=== PATIENT | female | born 2000 | race Caucasian/White ===

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

== ENCOUNTER 2019-01-29 12:27 | Emergency (ER) | payer OTHER ==
--- OUTSIDE RECORDS SUMMARY | 2019-01-29 13:52 | XMS REPORT | Continuity of Care Document ---
:2000 External Reference #:[id number] Author Name Caryn Luna M.D. Address [address] [place] [address] Care Team Providers Name Role Phone Caryn Luna M.D. Care Team Information Professor Of Violin Unavailable Payers Date Identification Numbers Payment Provider Subscriber Policy Number: [id number] [employer] Billy Lewis PayID: [id number] [address] [place] [address] Advance Directives Description No Information Available Problems Date Description Provider Status Onset: 09/01/2014 Attention deficit hyperactivity Zoya Hammond RPAC Active disorder Onset: 01/08/2018 Keratitis Zoya Hammond RPAC Active Note: due to contact lenses 12/2017 Family History Date Family Member(s) Observation Comments Father Unknown Mother Fibromyalgia Mother Anxiety Mother Bipolar Disorder Maternal Grandmother Glaucoma Social History Type Date Description Comments Sex Unknown Lives With Mother Lives With Brother X2 Lives With Alone Occupation Student Occupation Currently Working ETOH Use Never used alcohol Tobacco Use Start: Unknown Patient has never smoked Recreational Drug Use Denies Drug Use Smoking Status Reviewed: 12/30/18 Patient has never smoked Allergies, Adverse Reactions, Alerts Date Description Reaction Status Severity Comments 09/01/2014 Aspirin Anaphylaxis Active 05/27/2013 Cephalexin Urticaria Active 03/30/2013 Sulfa Antibiotics Urticaria Active Medications Medication Date Status Form Strength Qnty SIG Indications Ordering Provider No Active 06/11 Active Unknown Medications /2017 Xulane 03/09 Hx Patches 150-35mcg 3unit apply one Clune, Weekly /24HR s patch Jenniferl - topically eigh, DIVING FISHER 06/11 once a week for 21 days(3 weeks) then one week patch free Meloxicam 02/09 Hx Tablets 7.5mg 30tab 1 tab by Manuel, s mouth Tessa - every day , M.D. 06/11 as needed with milk for [facility] Ev[facility] 08/26 Hx Patches 150-35mcg 3unit apply one Clune Weekly /24HR s patch to Jenniferl - dry eigh, DIVING FISHER 03/09 hairless skin of the upper arms, abdomen or lower back x 3 weeks leave off 1 week - repeat Methylphenidate 01/18 Hx Tablets 10mg 90tab 1 tablet Manuel s by mouth Tessa - MD damon 08/10 times day ...... Reference #: [id number] ..... please give #30 for school and #60 for home. Amoxicillin 00 Hx Suspension 400mg/5ML Take 10MLS Unknown /0000 Rec By Mouth 2 - Times 08/10 Until Finished Immunizations CPT Code Status Date Vaccine Lot # [id number] Given 08/10/2015 Meningococcal Conjugate Vaccine Serogroups For [id number] Intramuscular Use 33075 Given 08/10/2015 Influenza Virus Vaccine Intranasal [id number] 41727 Given 05/05/2014 Poliovirus Vaccine Subcutaneous Or Intramuscular 19717 Given 03/30/2013 Meningococcal Conjugate Vaccine Serogroups For Intramuscular Use 27468 Given 02/06/2011 Gardasil 43491 Given 10/09/2010 Varicella (Chicken Pox) Vaccine 43522 Given 10/09/2010 Gardasil 19453 Given 08/09/2010 Tdap injection 72655 Given 08/09/2010 Gardasil 08418 Given 01/21/2004 DTaP Vaccine Younger Than 7 74303 Given 03/01/2003 MMR Vaccine, Live, For Subcutaneous Use 33821 Given 03/01/2003 Pneumococcal Conjugate Vaccine 7 Valent For Intramuscular Use 38252 Given 02/27/2002 Poliovirus Vaccine Subcutaneous Or Intramuscular 91178 Given 12/27/2000 Hib PRP-T Conjugate 4 Dose Schedule 47038 Given 12/27/2000 DTaP Vaccine Younger Than 7 16650 Given 12/27/2000 MMR Vaccine, Live, For Subcutaneous Use 96586 Given 12/27/2000 Poliovirus Vaccine Subcutaneous Or Intramuscular 13113 Given 12/27/2000 Varicella (Chicken Pox) Vaccine 96902 Given 2000 Hepatitis B Vaccine Pediatric/Adolescent 32751 Given 1999 Hemophilus Influenza B 32582 Given 1999 DTP Vaccine 15915 Given 1999 Hemophilus Influenza B 31879 Given 1999 Poliovirus Vaccine Subcutaneous Or Intramuscular 79129 Given 1999 DTP Vaccine 84081 Given 1999 Hepatitis B Vaccine Pediatric/Adolescent 00183 Given 1999 DTaP & Hib Vaccine 91243 Given 1999 Poliovirus Vaccine Subcutaneous Or Intramuscular 90413 Given 1999 DTaP Vaccine Younger Than 7 37987 Given 1999 Hib PRP-T Conjugate 4 Dose Schedule 92378 Given 1999 Hepatitis B Vaccine Pediatric/Adolescent Vital Signs Date Vital Result Comment 01/07/2019 11:41am BP Systolic 112 mmHg BP Diastolic 73 mmHg Body Temperature 97.9 F Heart Rate 68 /min Respiratory Rate 18 /min O2 % BldC Oximetry 99 % Pain Level 0 08/10/2015 10:34am BP Systolic Sitting Left Arm 100 mmHg BP Diastolic Sitting Left Arm 62 mmHg Heart Rate 68 /min Respiratory Rate 19 /min Height 65.5 inches 5'5.50" Weight 130.00 lb BMI (Body Mass Index) 21.3 kg/m2 BSA (Body Surface Area) 1.66 m2 Height Percentile 71 % Weight Percentile 67th Last Menstrual Period [id number] 02/09/2015 12:07pm BP Systolic 116 mmHg BP Diastolic 72 mmHg Body Temperature 98.5 F Heart Rate 66 /min Respiratory Rate 18 /min Height 65 inches 5'5" Weight 133.00 lb 09/01/2014 10:51am BP Systolic 102 mmHg BP Diastolic 62 mmHg Height 65.5 inches 5'5.50" Weight 136.00 lb 09/01/2014 10:54am Body Temperature 97.6 F 05/05/2014 3:13pm BP Systolic 100 mmHg BP Diastolic 60 mmHg Body Temperature 99.6 F Heart Rate 72 /min Height 65.5 inches 5'5.50" Weight 123.00 lb 03/22/2014 3:49pm BP Systolic 106 mmHg BP Diastolic 68 mmHg Height 65.5 inches 5'5.50" Weight 125.00 lb 02/10/2014 4:09pm BP Systolic 100 mmHg BP Diastolic 70 mmHg Heart Rate 60 /min Height 65.5 inches 5'5.50" Weight 125.00 lb 01/18/2014 3:43pm BP Systolic 108 mmHg BP Diastolic 64 mmHg Height 65.5 inches 5'5.50" Weight 122.00 lb 05/27/2013 9:26am BP Systolic 108 mmHg BP Diastolic 78 mmHg Height 64.75 inches 5'4.75" Weight 121.00 lb 04/29/2013 9:17am BP Systolic 100 mmHg BP Diastolic 68 mmHg Height 64.75 inches 5'4.75" Weight 124.00 lb 03/30/2013 2:15pm BP Systolic 100 mmHg BP Diastolic 66 mmHg Heart Rate 62 /min Respiratory Rate 18 /min Height 65.5 inches 5'5.50" Weight 126.00 lb Results Test Date Facility Test Result H/L Range Note Urine Culture 01/07/2019 [facility] Urine Culture NO GROWTH: 1, [address] <[place] [address] NOTE> [phone] Urine Dipstick 01/07/2019 [facility] Ua Color yellow Yellow Ua Clarity clear Clear Ua Leuko 125 High Negative Ua Nitrite neg Negative Ua Urobilinogen 0.2 0.2 - 1.0 E.U./dL Ua Protein 15 High Negative Ua PH 5.5 Low 6.5-7.5 Ua Blood 10 High Negative Ua Specific [place] 1.030 1.010-1.030 Ua Ketones neg Negative Ua Bilirubin neg Negative Ua Glucose neg Negative Hemoglobin/Hematocrit 12/17/2018 [facility] Hemoglobin 9.7 Low 11.6-15.[address] gm/[place] [address] [phone] Hematocrit 29.6 % Low 36.0-46.1 Laboratory test 12/15/2018 [facility] Negative (Negative) 4, [address] [place] [address] Rupture [phone] CBC 12/15/2018 [facility] White Blood 10.3 K/uL N 3.1-10.[address] [place] [address] [phone] Red Blood Count 3.87 M/uL Low 3.90-5.40 Hemoglobin 11.0 gm/dL Low 11.6-15.8 Hematocrit 32.6 % Low 36.0-46.1 Mean Cell Volume 84.2 fl N 80.9-99.0 Mean Corpuscular HGB 28.4 pg N 25.9-32.7 Mean Corpuscular HGB Conc 33.7 g/dL N 30.8-34.3 Platelet Count 238 K/uL N 155-360 Red Cell Distri Width %CV 13.4 % N 11.7-14.4 Mean Platelet Volume 10.3 fL N 8.9-12.4 Laboratory test 12/15/2018 [facility] Treponema Negative Negative [address] [place] [address] [place] [phone] Type And Screen 12/15/2018 [facility] Patient Blood B POS N [address] Type [place], [place] [id number] [phone] Antibody Screen Negative N Negative Laboratory test 11/18/2018 [facility] Membrane Negative (Negative) 8, finding [address] Rupture 9 [place], [place] [address] [phone] Laboratory test 10/14/2018 N2N/CCD Import Gardnerella Dna Negative [ Negative] finding Probe Trichomonas 10/14/2018 N2N/CCD Import Trichomonas Negative [Negative] vaginalis Dna vaginalis Dna detection by detection by probe and t probe and target amplification method Audrey species 10/14/2018 N2N/CCD Import Audrey species Negative [ Negative] Dna probe Dna probe Automated blood 09/10/2018 N2N/CCD Import Automated blood 7.8 3.1-10.7 leukocyte count leukocyte count (number/volume) (number/volume) Automated blood 09/10/2018 N2N/CCD Import Automated blood 239 155-360 platelet count platelet count Automated blood 09/10/2018 N2N/CCD Import Automated blood 10.8 8.9-12.4 platelet mean platelet mean volume volume measurement measurement Automated 09/10/2018 N2N/CCD Import Automated 13.1 11.7-14.4 erythrocyte erythrocyte distribution distribution width ratio width ratio Automated 09/10/2018 N2N/CCD Import Automated 31.3 25.9-32.7 erythrocyte mean erythrocyte corpuscular mean hemoglobin corpuscular hemoglobin (mass per erythrocyte) Automated 09/10/2018 N2N/CCD Import Automated 32.9 30.8-34.3 erythrocyte mean erythrocyte corpuscular mean hemoglobin corpuscular hemoglobin concentration measurement (mass/volume) Automated 09/10/2018 N2N/CCD Import Automated 94.9 80.9-99.0 erythrocyte mean erythrocyte corpuscular mean volume (MCV corpuscular volume (MCV) measurement Blood 09/10/2018 N2N/CCD Import Blood 3.36 Low 3.90-5.40 erythrocytes erythrocytes automated count automated count (number/volume) (number/volume) Blood hemoglobin 09/10/2018 N2N/CCD Import Blood 10.5 Low 11.6-15.8 measurement hemoglobin (mass/volume) measurement (mass/volume) Hct VFr Bld Auto 09/10/2018 N2N/CCD Import Hct VFr Bld 31.9 Low 36.0- 46.1 Auto Serum or plasma 09/10/2018 N2N/CCD Import Serum or plasma 80 -138 glucose glucose measurement 1 measurement 1 hour post do hour post dose glucose (mass/volume) Urine glucose 09/10/2018 N2N/CCD Import Urine glucose No Negative detection at 1 detection at 1 Specimen hour post dose hour post dose Received glucos glucose by test strip Urine ketones 09/10/2018 N2N/CCD Import Urine ketones No Negative detection using detection using Specimen test strip 1 test strip 1 Received hour af hour after challenge Automated blood 04/28/2018 N2N/CCD Import Automated blood 36.2 36.0- 46.1 hematocrit hematocrit (volume (volume fraction) fraction) Automated blood 04/28/2018 N2N/CCD Import Automated blood 209 155-360 platelet count platelet count Automated blood 04/28/2018 N2N/CCD Import Automated blood 11.1 8.9-12.4 platelet mean platelet mean volume volume measurement measurement Urine opiates 04/28/2018 N2N/CCD Import Urine opiates Negative detection by detection by screening method screening method Urine methadone 04/28/2018 N2N/CCD Import Urine methadone Negative screen screen Urine drug 04/28/2018 N2N/CCD Import Urine drug * screen comment screen comment interpretation interpretation Urine 04/28/2018 N2N/CCD Import Urine Negative cannabinoids cannabinoids detection by detection by screening method screening method Urine 04/28/2018 N2N/CCD Import Urine Negative benzoylecgonine benzoylecgonine detection by detection by screening metho screening method Urine 04/28/2018 N2N/CCD Import Urine Negative benzodiazepines benzodiazepines measurement by measurement by screening met screening method (mass/volume) Urine 04/28/2018 N2N/CCD Import Urine Negative amphetamines amphetamines detection by detection by screening method screening method Serum rubella 04/28/2018 N2N/CCD Import Serum rubella 1.71 Immune virus IgG virus IgG >0.99 antibody assay antibody assay by immunoas by immunoassay (units/volume) Automated 04/28/2018 N2N/CCD Import Automated 31.0 25.9-32.7 erythrocyte mean erythrocyte corpuscular mean hemoglobin corpuscular hemoglobin (mass per erythrocyte) Automated 04/28/2018 N2N/CCD Import Automated 35.1 High 30.8-34.3 erythrocyte mean erythrocyte corpuscular mean hemoglobin corpuscular hemoglobin concentration measurement (mass/volume) Automated 04/28/2018 N2N/CCD Import Automated 88.3 80.9-99.0 erythrocyte mean erythrocyte corpuscular mean volume corpuscular volume Bacteria Ur Cult 04/28/2018 N2N/CCD Import Bacteria Ur No Cult Growth: Final Report Blood 04/28/2018 N2N/CCD Import Blood 4.10 3.90-5.40 erythrocytes erythrocytes automated count automated count (number/volume) (number/volume) Blood hemoglobin 04/28/2018 N2N/CCD Import Blood 12.7 11.6-15.8 measurement hemoglobin (mass/volume) measurement (mass/volume) Blood leukocytes 04/28/2018 N2N/CCD Import Blood 6.3 3.1-10.7 automated count leukocytes (number/volume) automated count (number/volume) Hepatitis B 04/28/2018 N2N/CCD Import Hepatitis B Negative Negative virus surface Ag virus surface [Presence] in Ag [Presence] Serum o in Serum or Plasma by Immunoassay RDW RBC Auto-Rto 04/28/2018 N2N/CCD Import RDW RBC 13.2 11.7-14.4 Auto-Rto Screening urine 04/28/2018 N2N/CCD Import Screening urine Negative barbiturate barbiturate detection detection Serum Varicella 04/28/2018 N2N/CCD Import Serum Varicella 305 Immune > 165 zoster virus IgG zoster virus antibody assay IgG antibody by assay by immunoassay (units/volume) Laboratory test 03/10/2018 [facility] Poc , Negative Negative 10 finding [phone] Urine Poc Urinalysis 03/10/2018 [facility] Poc Glucose, Negative Negative [phone] Urine Poc Bilirubin, Urine Negative Negative Poc Ketone, Urine Negative Negative Poc Specific [place], Urine >=1.030 N 1.010-1.030 Poc Blood, Urine Negative Negative Poc pH, Urine 5.0 N 5-9 Poc Protein, Urine Trace Abnormal Negative Poc Urobilinogen, Urine 0.2 Negative Poc Nitrite, Urine Negative Negative Poc Leukocytes, Urine Negative Negative Poc Color, Urine Yellow Poc Clarity, Urine Clear 11 Urine Culture And 03/10/2018 [facility] Urine SEE RESULT 12, 13 Sensitivities [phone] Culture BELOW Laboratory test 10/08/2016 [facility] Rapid Strep Negative N Negative 14 finding [phone] Molecular Laboratory test 02/23/2016 [facility] Rapid Strep Negative N Negative 15 finding [phone] Molecular GC/CT 08/10/2015 [facility] (DO Not Use) GC NEGATIVE 16 Chlamydia NEGATIVE Laboratory test 08/06/2015 [facility] Throat Beta SEE RESULT 17 finding [phone] Strep Culture BELOW Laboratory test 04/29/2013 N2N/CCD Import Throat Beta (See Note) 18 finding Strep Culture 1 N39.0 2 NO GROWTH: FINAL REPORT 3 LABOR 4 40 WEEKS, ?DELIVERY 5 In very rare cases when a sample is taken 12 hours after a rupture, a FALSE NEGATIVE result may occur do to obstruction of the rupture by the fetus or or resealing of the aminiotic sac. Limitations of the test: Bleeding, placenta previa or performing digital exams prior to sampling can lead to inaccurate test results. Method: Immunochromatography 6 LABOR 7 Performed at: [address] [id number] [employer] [place]: Bennett Monroe MD, Phone: [phone] 8 35 WKS, FELL 9 In very rare cases when a sample is taken 12 hours after a rupture, a FALSE NEGATIVE result may occur do to obstruction of the rupture by the fetus or or resealing of the aminiotic sac. Limitations of the test: Bleeding, placenta previa or performing digital exams prior to sampling can lead to inaccurate test results. Method: Immunochromatography 10 Java Application Engineer: [id number] If is still suspected, please repeat test after 48 to 72 hours. 11 Java Application Engineer: [id number] 12 [id number] 13 SEE RESULT BELOW Name: TUNG LEWISCorey Christianson : [address]: Bib Nathan MD Acct: [id number] Unit: [id number] AGE: 18 Location: [facility] Re03/10/18 SEX: F Status: DEP ER SPEC: [id number] GOSIA: 03/10/[address] [facility] [address]: Roseanne DUKE REQ: [id number] RECD: 03/11/18 STATUS: JINA ALLEN DR: Zoya Nathan MD _ SOURCE: URINE SPDESC: ORDERED: Urine Culture COMMENTS: [id number] Procedure Result Reported Site Urine Culture Final 03/12/18- 0841 ML No Growth (<1,000 CFU/mL) * ML - Main Lab . END OF REPORT DEPARTMENT OF PATHOLOGY, [address] [place] [address] Tip Lara M.D. Director [facility] # [id number] 14 Java Application Engineer: [id number] COMFORT DONTA 15 Java Application Engineer: [id number] MARLY LUCAS Due to the increased sensitivity of molecular testing, reflex cultures are no longer performed. 16 [facility] [address] [place] [address], [facility] [address] [place] [address] STI REPORT Name: Billy Lewis : 2000 (Age: 15) Sex: F Location: [facility] Med. Rec. # [id number] Date Collected: 08/10/2015 Billing #: [id number] Date Received: 08/10/2015 Requisition # : [id number] Physician(s): TESSA CAMPBELL MD Specimen(s) Received: Urine, APTIMA Date Ordered: 08/10/2015 Status: Signed Out Date Reported: 08/11/2015 Neisseria gonorrhoeae NEGATIVE Electronic Signature Aline Werner [facility] Date Ordered: 08/10/2015 Status: Signed Out Date Reported: 08/11/2015 Chlamydia trachomatis NEGATIVE Electronic Signature Aline Werner, [facility] Dx Code(s): V20.2 17 SEE RESULT BELOW Name: BILLY LEWIS : [address]: Clinton Jasso MD Acct: [id number] Unit: [id number] AGE: 15 Location: [facility] Re08/06/15 SEX: F Status: DEP ER SPEC: [id number] GOSIA: 08/06/[address] [facility] [address]: Clinton Jasso MD REQ: [id number] RECD: 08/07/15-1231 STATUS: JINA ALLEN DR: Tessa Campbell MD _ SOURCE: THROAT SPDESC: ORDERED: Throat Beta Str Procedure Result Verified Site Throat Beta Strep Culture Final 08/09/15- 08 ML Negative For Group A Beta Streptococcus * ML - MAIN LAB (PSC1) . END OF REPORT * ML=Testing performed at Main Lab DEPARTMENT OF PATHOLOGY, [facility] [place] [address] Tip Lara M.D. Director [facility] # [id number] 18 RUN DATE: 05/01/13 [facility] LAB LIVE PAGE 1 RUN TIME: [address] [place] [address] Specimen Inquiry ----- Name: BILLY LEWIS : [address]: Tessa Campbell MD Acct: [id number] Unit: [id number] AGE: 13 Location: LOC[facility]IN [facility] Re SEX: F Status: REG REF ----- SPEC: [id number] GOSIA: 04/29/[address] [facility] [address]: Tessa Campbell MD REQ: [id number] RECD: 04/29/13 STATUS: COMP _ SOURCE: THROAT SPDESC: ORDERED: Throat Beta Str QUERIES: Medent Number [id number] ----- Procedure Result Verified Site ----- Throat Beta Strep Culture Final 05/01/13 ML Negative For Group A Beta Streptococcus ----- END OF REPORT * ML=Testing performed at Main Lab DEPARTMENT OF PATHOLOGY, [address] [place] [address] Tip Lara M.D. Director [facility] Permit # [id number] Procedures Date Code Description Status 01/07/2019 72724 Measurement Post Voiding Residual Urine By Completed Ultrasound,Non-Imaging 06/23/2007 61256 Tympanometry Completed Encounters Type Date Location Provider Dx Diagnosis Office Visit 01/07/2019 Urology Dru Coreas, R39.15 Urgency of urination 11:30a PA N39.41 Urge incontinence Office Visit 02/09/2015 11:45a [facility] [place], 462 Pharyngitis Acute [place], [facility] 784.0 Headache Office Visit 07/23/2007 4:00p Operating Room [facility], 382.01 Otitis Media Acute M.D. Suppurative W/ Spontaneous Rupture Drum Plan of Treatment Future Appointment(s):04/07/2019 11:15 am - Dru Coreas, PA at [email or web address] - Dru Coreas, PAR39.15 Urgency of urinationComments:She is currently on antibiotics for mastitis. Today's urine is sent for woggyiqP19.41 Urge incontinenceComments:Her postvoid residual today is 0. She clearly needs to increase her hydration. Reviewed pelvic floor relaxation and timed voiding. I suspect that many of these symptoms will continue to improve.
[2019-01-29 14:01] VITALS: BP 110/78
--- NOTE | 2019-01-29 14:39 | ED ---
Respiratory - HPI Summary HPI Summary: 19 yr old with 5 days of nasal congestion, sore throat, cough. The patient states her throat hurts. No drooling, no hoarse voice. No fever. The patient has other ill exposures. - History of Current Complaint Chief Complaint: UCGeneralIllness Stated Complaint: SORE THROAT Time Seen by Provider: 01/29/19 14:03 Pain Intensity: 10 - Allergy/Home Medications Allergies/Adverse Reactions: Allergies Allergy/AdvReac Type Severity Reaction Status Date / Time aspirin Allergy Airway Verified 01/29/19 13:58 Obstruction cephalexin Allergy Hives Verified 01/29/19 13:58 Sulfa (Sulfonamide Allergy Hives Verified 01/29/19 13:58 Antibiotics) Home Medications: Home Medications NK [No Home Medications Reported] 01/29/19 [History Confirmed 01/29/19] PMH/Surg Hx/FS Hx/Imm Hx - Surgical History Surgery Procedure, Year, and Place: Tubes in ears as child. dental- 03/08/16 Infectious Disease History: No Infectious Disease History: Denies: Hx Clostridium Difficile, Hx Hepatitis, Hx Human Immunodeficiency Virus (HIV), Hx of Known/Suspected MRSA, Hx Shingles, Hx Tuberculosis, Hx Known/ Suspected VRE, Hx Known/Suspected VRSA, History Other Infectious Disease, Traveled Outside the [place] in Last 30 Days - Family History Known Family History: Positive: Hypertension Negative: Diabetes - Social History Occupation: Employed Full-time Lives: With Family Alcohol Use: None Substance Use Type: Reports: None Smoking Status (MU): Never Smoked Tobacco Review of Systems Constitutional: Negative Positive: Sore Throat, Nasal Discharge Positive: Cough All Other Systems Reviewed And Are Negative: Yes Physical Exam Triage Information Reviewed: Yes Vital Signs On Initial Exam: Initial Vitals Temp Pulse Resp BP Pulse Ox 98.3 F 74 15 110/78 100 01/29/19 13:57 01/29/19 13:57 01/29/19 13:57 01/29/19 13:57 01/29/19 13:57 Vital Signs Reviewed: Yes Appearance: Positive: Well-Appearing, No Pain Distress Skin: Positive: Warm, Skin Color Reflects Adequate Perfusion Head/Face: Positive: Normal Head/Face Inspection Eyes: Positive: EOMI, LEO ENT: Positive: Normal ENT inspection, Pharyngeal erythema, Nasal congestion Neck: Positive: Nontender, No Lymphadenopathy Respiratory/Lung Sounds: Positive: Clear to Auscultation, Breath Sounds Present Cardiovascular: Positive: RRR. Negative: Murmur Abdomen Description: Positive: Nontender Musculoskeletal: Positive: Strength/ROM Intact Neurological: Positive: Sensory/Motor Intact, Alert, Oriented to Person Place, Time, CN Intact II-III Psychiatric: Positive: Normal Diagnostics - Vital Signs Vital Signs Temp Pulse Resp BP Pulse Ox 01/29/19 13:57 98.3 F 74 15 110/78 100 - Laboratory Lab Results: Lab Results 01/29/19 Range/Units 14:08 Group A Strep Rapid Negative (Negative) Lab Statement: Any lab studies that have been ordered have been reviewed, and results considered in the medical decision making process. Disposition - Course Course Of Treatment: 19 yr old with URI. DC home. - Diagnoses Provider Diagnoses: Upper respiratory infection Discharge - Sign-Out/Discharge Documenting (check all that apply): Patient Departure All imaging exams completed and their final reports reviewed: No Studies - Discharge Plan Condition: Good Disposition: HOME Patient Education Materials: Upper Respiratory Infection (ED) Referrals: No Primary Care Phys,NOPCP [Primary Care Provider] - [facility]ERR[facility] [Outside] - Billing Disposition and Condition Condition: GOOD Disposition: Home
== END 2019-01-29 14:51 | disposition home or self-care (01) ==
LOC: UCCORT 12:27
DX: J06.9 Acute upper respiratory infection, unspecified (principal); Z88.8 Allergy status to other drugs, medicaments and biological substances; Z88.1 Allergy status to other antibiotic agents; Z88.2 Allergy status to sulfonamides
CPT/HCPCS: 87651; 99211; G0463